=== PATIENT | male | born 1990 | race Caucasian/White ===

== ENCOUNTER 2022-09-07 08:46 | Outpatient (CLI) | payer MEDICARE, SELFPAY ==
--- NOTE | 2022-09-07 08:45 | CRLHL7_ITS ---
For Patients: As a result of the Century Cures Act, medical imaging exams and procedure reports are released immediately into your electronic medical record. You may view this report before your referring provider. If you have questions, please contact your health care provider. INDICATION: MORBID OBESITY COMPARISON: none TECHNIQUE: Real time buenrostro scale imaging and color Doppler analysis was performed of the right upper quadrant. FINDINGS: The liver is enlarged and is extremely Dense/echogenic. There is a normal appearance of the hepatic IVC and proximal abdominal aorta. There is no evidence of ascites. The gallbladder this somewhat difficult to visualize due to the dense liver. The gallbladder is not distended. The gallbladder wall is normal measuring 2 millimeters. A faint echogenic focus may be present within the gallbladder on the transverse images. The common bile duct is of normal size and measures 6 mm in diameter at the level of the gabriela hepatis. The pancreas is not well visualized. There is no evidence of a stone or hydronephrosis within the right kidney. The right kidney measures 15.7 cm in length. IMPRESSION: Severe hepatic steatosis which limits evaluation of the gallbladder. There may be a tiny stone within the gallbladder. Dictated by Jose Sprague MD @ 09/07/2022 9:46:09 AM (Electronically Signed)
== END 2022-09-07 08:47 | disposition home or self-care (01) ==
PROVIDERS: PCP Family Medicine; Visit Provider Surgery
DX: E66.01 Morbid (severe) obesity due to excess calories (principal); K76.0 Fatty (change of) liver, not elsewhere classified
CPT/HCPCS: 76705